=== PATIENT | female | born 1980 | race Caucasian/White ===

== ENCOUNTER → 2017-09-14 | Outpatient (CLI) | payer OTHER ==
--- NOTE | 2017-09-14 11:30 | XR ---
Right foot and right ankle HISTORY: Right foot and right ankle pain 3 views of the right foot, 3 views of the right ankle submitted. Soft tissue swelling is noted laterally in the ankle, dorsally of the foot. Bone mineralization, join t spaces and alignment are maintained. No dislocation of the ankle or foot. Small ossific density pre sent at the dorsal aspect of the talus. IMPRESSION: Soft tissue swelling. Correlate for point tenderness dorsal aspect of the talus. Difficul t to exclude a small chip fracture. CT or MRI may be of benefit.
== END | disposition home or self-care (01) ==
LOC: RADXRMAIN 10:18
PROVIDERS: ATTEND Family Medicine
DX: M25.571 Pain in right ankle and joints of right foot (principal)

== ENCOUNTER → 2017-09-27 | Outpatient (CLI) | payer OTHER ==
--- NOTE | 2017-09-28 00:14 | MR ---
EXAMINATION TYPE: MR ankle RT wo con DATE OF EXAM: 09/27/2017 COMPARISON: Radiograph 09/14/2017 HISTORY: 37-year-old female with pain, Unspecified fracture of right lower leg TECHNIQUE: Multiplanar, multisequence images of the right ankle were obtained without IV contrast. FINDINGS: There is bone marrow edema throughout the head and neck of the talus and possible subchondral bony de fect measuring 3 mm along the anterior margin of the middle subtalar joint, sagittal image 8. There is dorsal capsular swelling at the talonavicular joint with only mild edema. No discrete fractu re seen here despite the finding questioned on 09/14/2017 radiographs. However, there is a nondisplaced fracture of the anterior process of the calcaneus with associated ma rrow edema. Some adjacent mild marrow edema in the navicular likely secondary to bone bruise. Lateral sided soft tissue swelling is present. The tibiotalar joint appears intact. The syndesmosis is intact. Lateral ligamentous complex is intact. Mild tenosynovial fluid along the inframalleolar and malleolus peroneal tendons without discrete tear. The deltoid and spring ligament complex appear intact. Additional mild tenosynovial fluid seen along the posterior tibial tendon. Medial flexor tendons appear grossly intact. Anterior extensor tendons are intact. Preserved signal in the sinus tarsi. Tarsal tunnel is clear. Trace fluid within the retrocalcaneal bursa. Origin of the plantar fascia is intact. IMPRESSION: 1. Nondisplaced fracture of the anterior process of the calcaneus. Associated reactive marrow edema a nd bone bruise in the adjacent proximal navicular. 2. Additional bone bruise involving the talar head and neck and tiny 3 mm defect of the subchondral b one plate along the anterior margin of the middle subtalar joint. 3. Mild sprain of the dorsal talonavicular joint capsule. Lateral soft tissue swelling.
== END | disposition home or self-care (01) ==
LOC: RADMRIMAIN 10:53
PROVIDERS: ATTEND Family Medicine
DX: S92.024A Nondisplaced fracture of anterior process of right calcaneus, initial encounter for closed fracture (principal); S93.491A Sprain of other ligament of right ankle, initial encounter; T14.8XXA Other injury of unspecified body region, initial encounter

== ENCOUNTER → 2018-04-24 | Outpatient (CLI) | payer OTHER ==
[2018-04-24 09:44] LABS: Basophils % (A) 0 %; Eosinophils # (A) 0.1 k/uL (0-0.7); Eosinophils % (A) 2 %; Lymphocytes # (A) 1.8 k/uL (1.0-4.8); Lymphocytes % (A) 26 %; MCH 29.6 pg (25.0-35.0); MCHC 32.6 g/dL (31.0-37.0); MCV 90.7 fL (80.0-100.0); Mean Platelet Volume 7.7; Monocytes # (A) 0.4 k/uL (0-1.0); Monocytes % (A) 6 %; Neutrophils # (A) 4.2 k/uL (1.3-7.7); Neutrophils % (A) 64 %; Platelet Count 214 k/uL (150-450); RBC 4.74 m/uL (3.80-5.40); RDW 12.4 % (11.5-15.5); WBC 6.7 k/uL (3.8-10.6)
[2018-04-24 09:51] LABS: ALT 22 U/L (9-52); AST 17 U/L (14-36); Albumin 4.3 g/dL (3.5-5.0); Alkaline Phosphatase 48 U/L (38-126); Anion Gap 10 mmol/L; Blood Urea Nitrogen 19 mg/dL (7-17); Calcium 9.4 mg/dL (8.4-10.2); Carbon Dioxide 24 mmol/L (22-30); Chloride 106 mmol/L (98-107); Cholesterol 207 mg/dL (<200); Glucose 101 mg/dL (74-99); HDL Cholesterol 55 mg/dL (40-60); LDL Cholesterol,Calculated 131 mg/dL (0-99); Potassium 4.6 mmol/L (3.5-5.1); Sodium 140 mmol/L (137-145); Total Bilirubin 0.7 mg/dL (0.2-1.3); Total Protein 7.5 g/dL (6.3-8.2); Triglycerides 104 mg/dL (<150)
== END | disposition home or self-care (01) ==
LOC: LABWHC1 08:56
PROVIDERS: ATTEND Family Medicine
DX: Z00.00 Encounter for general adult medical examination without abnormal findings (principal)
CPT/HCPCS: 36415; 80053; 80061; 82306; 84443; 85025

== ENCOUNTER → 2024-02-24 | Outpatient (CLI) | payer BC ==
[2024-02-24 22:41] LABS: Basophils # (A) 0.02 X 10*3/uL (0.00-0.10); Basophils % (A) 0.4 %; Eosinophils % (A) 3.8 %; HCT 41.4 % (37.2-46.3); HGB 13.5 g/dL (12.0-15.0); Lymphocytes # (A) 1.56 X 10*3/uL (0.90-5.00); Lymphocytes % (A) 29.8 %; MCHC 32.6 g/dL (32.0-37.0); Mean Platelet Volume 10.5 FL (9.5-12.2); Monocytes % (A) 7.6 %; NRBC Per 100 WBC 0 X 10*3/uL (0.00-0.01); Neutrophils # (A) 3.04 X 10*3/uL (1.80-7.70); Neutrophils % (A) 58.2 %; Platelet Count 228 X 10*3/uL (140-440); RDW 11.8 % (11.5-14.5); WBC 5.23 X 10*3/uL (4.50-10.00)
[2024-02-24 23:10] LABS: ALT 13 U/L (8-44); AST 19 U/L (13-35); Albumin 4.7 g/dL (3.8-4.9); Albumin/Globulin Ratio 1.74 Ratio (1.60-3.17); Alkaline Phosphatase 55 U/L (41-126); BUN/Creat Ratio 15.78 Ratio (12.00-20.00); Blood Urea Nitrogen 14.2 mg/dL (9.0-27.0); Calcium 9.3 mg/dL (8.7-10.3); Carbon Dioxide 26.8 mmol/L (21.6-31.8); Chloride 102 mmol/L (96-109); Chol/HDL Ratio 3.46 Ratio; Globulin 2.7 g/dL (1.6-3.3); Glucose 89 mg/dL (70-110); Potassium 4.4 mmol/L (3.5-5.5); Sodium 139 mmol/L (135-145); T4, Free (Free Thyroxine) 1.11 ng/dL (0.80-1.80); Total Bilirubin 0.7 mg/dL (0.3-1.2); Total Protein 7.4 g/dL (6.2-8.2)
== END | disposition home or self-care (01) ==
LOC: LABWHC1 08:51
PROVIDERS: ATTEND Family Medicine
DX: Z00.00 Encounter for general adult medical examination without abnormal findings (principal)
CPT/HCPCS: 36415; 80053; 80061; 82306; 84439; 84443; 85025